=== PATIENT | female | born 1970 | race Caucasian/White ===

== ENCOUNTER 2019-02-09 10:08 | Emergency (ER) | payer SELFPAY ==
[2019-02-09] MEDS ORDERED: Tetan/Diph/Pertus SYR(Tdap)* 0.5 ML SYR(BOOSTRIX) use SYR IM ONE (10:23)
[2019-02-09] MEDS ORDERED: Lidocain 1% EPI 1:100,000 * 30 ML MDV INJ ONE (10:23)
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
[2019-02-09] MEDS ORDERED: Lidocaine 2% EPI 1:200000 MPF*10-20 ML VIAL ONE (10:43)
[2019-02-09] MEDS ORDERED: ceFAZolin 1 GM ADVAN(*) 1 GM in NS 0.9% 50 ML* 50 ML IVPB ONE (12:07)
[2019-02-09] MEDS ORDERED: ceFAZolin 500 MG VIAL(*) 500 MG VIAL IM ONE (12:21)
[2019-02-09] MEDS ORDERED: HYDROcodone/ACETAMIN 5-325 MG* 1 TAB PO ONE (12:42)
[2019-02-09] MEDS ORDERED: Sterile Water for Inj* 10 ML ONE (12:59)
[2019-02-09] MEDS ORDERED: ceFAZolin VIAL(*) VIAL IM ONE (13:00)
[2019-02-09 13:08] VITALS: BP 130/92
== END 2019-02-09 13:08 | disposition short-term general hospital (02) ==
LOC: ED 10:08
DX: S09.12XA Laceration of muscle and tendon of head, initial encounter (principal); S01.91XA Laceration without foreign body of unspecified part of head, initial encounter; Y04.2XXA Assault by strike against or bumped into by another person, initial encounter; Y92.009 Unspecified place in unspecified non-institutional (private) residence as the place of occurrence of the external cause
CPT/HCPCS: 70450; 70486; 90471; 90715; 96372; 96374; 96375; 99282; J0690